=== PATIENT | female | born 1990 | race Caucasian/White ===

== ENCOUNTER 2018-09-03 06:02 | Emergency (ER) | payer OTHER ==
[2018-09-03 06:45] VITALS: BP 114/68; PULSE 73; TEMP 98.6; BMI 36.6
[2018-09-03 07:14] LABS: BASO % 0.5 % (0-2.0); EOS % 1.3 % (0-4.5); HEMATOCRIT 32.8 % (32.4-45.2); HEMOGLOBIN 10.3 GM/dL (10.7-15.3); MCH 23.7 pg (25.7-33.7); MCHC 31.6 g/dl (32.0-36.0); MEAN PLT VOLUME 8.5 fl (7.5-11.1); MONO % 8.2 % (3.8-10.2); PLATELET COUNT 221 K/MM3 (134-434); RBC 4.37 M/mm3 (3.60-5.2); RDW 16.2 % (11.6-15.6); WHITE BLOOD COUNT 5.9 K/mm3 (4.0-10.0)
--- NOTE | 2018-09-03 07:28 | PDOC ---
Attending Attestation - Resident Resident Name: Lynn Murrell - ED Attending Attestation I have performed the following: I have examined & evaluated the patient, The case was reviewed & discussed with the resident, I agree w/resident's findings & plan, Exceptions are as noted - HPI HPI: 09/03/18 07:40 27y F 9 weeks woke up this morning to urinate and noticed some spotting when cleaning herself. Pt endorsed a brief moment of pain yuesterday but has since resolved. pt denies any fever/chills, frequency, foul smelling urine, diarrhea, bpr, new back pain, cp, sob, cough. pt has pending OB apt on at [facility] [place]. exam: general: well appearing, NAD abd: soft nontender, no cva tenderness pelvic: per resident ap: preg vag spotting will ck labs, type, US to eval status - Medical Decision Making 09/03/18 10:07 The patient's lab work was reviewed Patient's vaginal ultrasound reveals an IUP with appropriate heart rate We'll discharge patient to follow up with [employer] Precautions were discussed
--- NOTE | 2018-09-03 07:45 | PDOC ---
History of Present Illness - General Chief Complaint: Pain, Acute Stated Complaint: ABD PAIN 9 WEEKS Time Seen by Provider: 09/03/18 07:10 - History of Present Illness Initial Comments: Mary Payton is an otherwise healthy woman, at 8w2d by LMP, who presents with a small amount of vaginal bleeding today. She reports that she has not had any issues thus far in her . Yesterday , she felt that her abdomen became hard and hurt, but the sensation lasted a short time and self-resolved. The abdominal hardness and pain did not recur. She woke up overnight to use the bathroom, and she noticed some blood on the toilet paper. There was not enough blood to stain her underwear, but her first was complicated by placental detachment and she was concerned that something similar was happening now. Ms Payton reports that she was told during her first that the placental detachment was due to not producing enough progesterone, and she received progesterone supplements (IM and PO) and was on strict bedrest for the remainder of her . She delivered at 34 weeks. She denies any other abdominal p ain, bleeding episodes, fevers/chills, or dysuria. Past History - Past Medical History Allergies/Adverse Reactions: Allergies Allergy/AdvReac Type Severity Reaction Status Date / Time No Known Allergies Allergy Verified 09/03/18 06:43 Home Medications: Ambulatory Orders NK [No Known Home Medication] 09/03/18 COPD: No - Reproductive History Is Patient Now?: Yes - Immunization History Immunization Up to Date: No - Suicide/Smoking/Psychosocial Hx Smoking History: Never smoked Have you smoked in the past 12 months: No Information on smoking cessation initiated: No Hx Alcohol Use: No Drug/Substance Use Hx: No Review of Systems - Review of Systems Comments:: General: No fevers, no chills, no weight or appetite changes, no malaise HEENT: No changes in vision, no changes in hearing, no congestion, no sore throat CV: No chest pain, no palpitations, no LE edema Pulm: No SOB, no cough, no wheezing GI: No nausea or vomiting, no change in bowel habits, no melena : No frequency, no urgency, no dysuria Musc: +Mild back pain, no joint swelling, no recent injury Skin: No rash, no lesions, no erythema Endo: No excessive thirst, no heat/cold intolerance Heme: No unusual bruising or bleeding, no swollen glands Neuro: No syncope, no numbness/tingling, no focal weakness Vasc: No claudication Psych: No recent change in mood, no SI or HI *Physical Exam - Vital Signs Last Vital Signs Temp Pulse Resp BP Pulse Ox 98.6 F 73 20 114/68 100 09/03/18 06:05 09/03/18 06:05 09/03/18 06:05 09/03/18 06:05 09/03/18 06:05 - Physical Exam Comments: General: Comfortable, no acute distress HEENT: PERRL, EOMI, MMM, voice normal, normal neck ROM Cards: RRR, no murmur appreciated Pulm: Comfortable on room air Abd: Soft, nontender, nondistended. Not visibly gravid : Normal external genitalia, no blood or lesions. No blood in vaginal canal. No lesions or abrasions. Os closed. Ext: Atraumatic. No LE edema. ROM intact. Strength 5/5 and equal bilaterally Vasc: WWP Skin: Normal color, no rashes or lesions Neuro: A&Ox3, CN grossly intact, normal speech, motor/sensory grossly intact and symmetric Psych: Mood appropriate to situation ED Treatment Course - LABORATORY CBC & Chemistry Diagram: 09/03/18 06:53 09/03/18 06:53 Medical Decision Making - Medical Decision Making 09/03/18 07:37 Mary Payton is an otherwise healthy woman, 9wks , who presents with vaginal bleeding that started this morning as well as an episode of abdominal cramping yesterday. - Ms Payton reports that her previous was complicated by placental detachment; need to rule out similar episode - Ddx includes normal or threatened/inevitable . Low suspicion for completed spontaneous as Ms Payton. As no bleeding or opening of the cervical os was noted on exam, more reassuring for normal - CBC, CMP, bHCG, UA, UCx previously ordered. Will add type and screen. - Transvaginal ultrasound ordered to confirm intrauterine 09/03/18 09:58 - CBC and chemistry unremarkable - bHCG [id number], c/w reported gestational age - UA with small number of RBC and WBCs. Ms Payton states that she did not use a wipe to clean herself prior to collecting the sample. Will not treat for now, should repeat her UA at her OB follow up - Ultrasound returned - shows an intrauterine at 8w0d, HR 140. - Discussed results with Ms Payton. US and labs show likely healthy but could also represent a threatened . She has an OB appointment on but should try to reschedule for early next week. Ms Payton states agreement with this plan. Discussed return precautions, and she also states understanding. Seen and discussed with Dr Sanchez. Lynn Murrell PGY1 *DC/Admit/Observation/Transfer Diagnosis at time of Disposition: Vaginal bleeding in patient at less than 20 weeks gestation - Discharge Dispostion Disposition: HOME Condition at time of disposition: Stable Decision to Admit order: No - Referrals Referrals: Alma Fung MD [Staff Physician] - - Patient Instructions Printed Discharge Instructions: Vaginal Bleeding During Additional Instructions: Discharge Instructions: - You were seen in the ED for vaginal bleeding during your - Tests showed that you are about 8 weeks . The baby is located properly and has a heart rate of 140 beats/minute. There was no sign of any problem with your - You should follow up with your hand coremaker early next week - If you need to establish care with an hand coremaker, you have been referred to Dr Fung - Seek medical care if you have severe or persistent vaginal bleeding, severe or abrupt onset of abdominal pain, feel lightheaded along with bleeding, or experience abdominal/back cramping similar to contractions. Print Language: HUNGARIAN - Post Discharge Activity
[2018-09-03 07:52] LABS: URINE APPEARANCE CLEAR; URINE BILIRUBIN NEGATIVE (<2.0 mg/dL); URINE COLOR YELLOW; URINE GLUCOSE (UA) NEGATIVE (NEGATIVE); URINE KETONE NEGATIVE (NEGATIVE); URINE LEUK ESTERASE TRACE (NEGATIVE); URINE NITRITE NEGATIVE (NEGATIVE); URINE PROTEIN NEGATIVE (NEGATIVE); URINE UROBILINOGEN NEGATIVE mg/dL (0.2-1.0)
[2018-09-03 08:18] LABS: EPI CELLS RARE /HPF (FEW); URINE MUCUS RARE
[2018-09-03 08:43] LABS: ALBUMIN 3.4 g/dl (3.4-5.0); ALK PHOS 66 U/L (45-117); ANION GAP 7 MMOL/L (8-16); BILIRUBIN,TOTAL 0.4 mg/dL (0.2-1); BLOOD UREA NITROGEN 12 mg/dL (7-18); CALCIUM 8.7 mg/dL (8.5-10.1); CHLORIDE 103 mmol/L (98-107); CO2 27 mmol/L (21-32); CREATININE 0.5 mg/dL (0.55-1.3); GLUCOSE,RANDOM 91 mg/dL (74-106); POTASSIUM 3.7 mmol/L (3.5-5.1); SGOT/AST 12 U/L (15-37); SGPT/ALT 14 U/L (13-61); SODIUM 137 mmol/L (136-145); TOT PROT 6.4 g/dl (6.4-8.2)
== END 2018-09-03 10:30 | disposition home or self-care (01) ==
LOC: JER 06:02
DX: O26.891 Other specified pregnancy related conditions, first trimester (principal); N93.9 Abnormal uterine and vaginal bleeding, unspecified
CPT/HCPCS: 36415; 76830-TC; 80053; 81003; 81015; 84702; 85025; 87086; 99282-25

== ENCOUNTER 2018-10-28 10:27 | Emergency (ER) | payer OTHER ==
[2018-10-28 11:04] VITALS: BP 144/62; PULSE 89; TEMP 98.4; BMI 83.4
--- NOTE | 2018-10-28 12:07 | PDOC ---
History of Present Illness - General Chief Complaint: Vaginal Bleeding Stated Complaint: VAGINAL BLEEDING (17 WKS ) Time Seen by Provider: 10/28/18 11:29 History Source: Patient Exam Limitations: No Limitations - History of Present Illness Initial Comments: 10/28/18 12:07 CHIEF COMPLAINT: Vaginal bleeding HISTORY OF PRESENT ILLNESS: This is an otherwise healthy , 17 weeks and receiving care at [address] [place] [address], who presents for evaluation of vaginal bleeding with clots and back pain today. She denies trauma, nausea/ vomiting, dysuria, or any other symptoms. Vital signs on arrival are unremarkable. REVIEW OF SYSTEMS: GENERAL/CONSTITUTIONAL: No fever or chills. No weakness. No weight change. HEAD, EYES, EARS, NOSE AND THROAT: No change in vision. No ear pain or discharge. No sore throat. CARDIOVASCULAR: No chest pain or palpitations. RESPIRATORY: No cough, wheezing, or shortness of breath. GASTROINTESTINAL: No nausea, vomiting, diarrhea or constipation. GENITOURINARY: See HPI. MUSCULOSKELETAL: No joint or muscle swelling or pain. No neck or back pain. SKIN: No rash or easy bruising. NEUROLOGIC: No headache, vertigo, loss of consciousness, or loss of sensation. PSYCHIATRIC: No depression or anxiety. ENDOCRINE: No increased thirst. No abnormal weight change. HEMATOLOGIC/LYMPHATIC: No anemia, easy bleeding, or history of blood clots. ALLERGIC/IMMUNOLOGIC: No hives or skin allergy. No latex allergy. PHYSICAL EXAM: GENERAL: The patient is awake, alert, and fully oriented, in no acute distress. HEAD: Normal with no signs of trauma. ENT: Pupils equal, round and reactive to light, extraocular movements intact, sclera anicteric, conjunctiva clear. Neck supple. LUNGS: Clear to auscultation bilaterally. Normal excursion. No respiratory distress or use of accessory muscles. CV: RRR, S1/S2, no MRG. Cap refill < 2 sec. ABDOMEN: Soft, non-tender. Gravid uterus palpable above umbilicus. No CVA tenderness. EXTREMITIES: Normal range of motion, no edema. NEUROLOGICAL: Normal speech, normal gait. CN II-XII grossly intact. PSYCH: Normal mood, normal affect. SKIN: Warm, dry, normal turgor, no rashes or lesions noted. 10/28/18 14:50 Past History - Past Medical History Allergies/Adverse Reactions: Allergies Allergy/AdvReac Type Severity Reaction Status Date / Time No Known Allergies Allergy Verified 10/28/18 10:59 Home Medications: Ambulatory Orders No122/Iron/Folic Acid [ Multi Tablet] 1 each PO DAILY 10/28/18 COPD: No - Reproductive History (#): 2 Para: 1 Spontaneous : 0 - Immunization History Immunization Up to Date: Yes - Suicide/Smoking/Psychosocial Hx Smoking History: Never smoked Have you smoked in the past 12 months: No Information on smoking cessation initiated: No Hx Alcohol Use: No Drug/Substance Use Hx: No *Physical Exam - Vital Signs Last Vital Signs Temp Pulse Resp BP Pulse Ox 98.4 F 89 18 144/62 99 10/28/18 11:01 10/28/18 11:01 10/28/18 11:01 10/28/18 11:01 10/28/18 11:01 Moderate Sedation - Procedure Monitoring Vital Signs: Procedure Monitoring Vital Signs Temperature 98.4 F 10/28/18 11:01 Pulse Rate 89 10/28/18 11:01 Respiratory Rate 18 10/28/18 11:01 Blood Pressure 144/62 10/28/18 11:01 O2 Sat by Pulse Oximetry (%) 99 10/28/18 11:01 ED Treatment Course - LABORATORY CBC & Chemistry Diagram: 10/28/18 12:45 10/28/18 12:45 - RADIOLOGY Radiology Studies Ordered: Category Date Time Status LIMITED US [US] Stat Ultrasound 10/28/18 12:04 Ordered Medical Decision Making - Medical Decision Making 10/28/18 14:52 A/P: 28-year-old female in second trimester with vaginal bleeding and back pain. 1. Etc. ultrasound 2. Labs including CBC, type and screen 3. Patient declines analgesia Patient is Rh+. H/H within normal limits. Ultrasound reviewed: Single, live IUP 16 weeks 1 day with normal FH R and cervical length. Placenta is in posterior and fundal position. *DC/Admit/Observation/Transfer Diagnosis at time of Disposition: Threatened , Vaginal bleeding in patient at less than 20 weeks gestation - Discharge Dispostion Disposition: HOME Condition at time of disposition: Stable Decision to Admit order: No - Referrals - Patient Instructions Printed Discharge Instructions: DI for Threatened Additional Instructions: -Pelvic rest (no baths, no sexual activity) -Take Tylenol if needed for pain -Follow up with your emergency department clinician early next week -Return for worsening pain, bleeding or any other concerning symptoms Print Language: GABONESE - Post Discharge Activity
[2018-10-28 12:55] LABS: BASO % 0.2 % (0-2.0); HEMATOCRIT 34.3 % (32.4-45.2); HEMOGLOBIN 11.9 GM/dL (10.7-15.3); LYMPH % 29.5 % (8-40); MCH 26.1 pg (25.7-33.7); MCHC 34.6 g/dl (32.0-36.0); MEAN CELL VOLUME 75.5 fl (80-96); MEAN PLT VOLUME 9.2 fl (7.5-11.1); MONO % 7.4 % (3.8-10.2); NEUT % 60.9 % (42.8-82.8); PLATELET COUNT 212 K/MM3 (134-434); RBC 4.54 M/mm3 (3.60-5.2); RDW 16.2 % (11.6-15.6)
[2018-10-28 13:19] LABS: ANION GAP 8 MMOL/L (8-16); BLOOD UREA NITROGEN 8 mg/dL (7-18); CALCIUM 8.6 mg/dL (8.5-10.1); CHLORIDE 106 mmol/L (98-107); CO2 24 mmol/L (21-32); CREATININE 0.4 mg/dL (0.55-1.3); GLUCOSE,RANDOM 81 mg/dL (74-106); POTASSIUM 4.1 mmol/L (3.5-5.1); SODIUM 137 mmol/L (136-145)
== END 2018-10-28 15:11 | disposition home or self-care (01) ==
LOC: JER 10:27
DX: O26.892 Other specified pregnancy related conditions, second trimester (principal); O20.0 Threatened abortion; Z3A.17 17 weeks gestation of pregnancy
CPT/HCPCS: 36415; 76815-TC; 80048; 85025; 86850; 86900; 86901; 99282-25

== ENCOUNTER 2019-04-04 08:45 | Inpatient (IN) | payer OTHER ==
[2019-04-04] MEDS ORDERED: CITRIC ACID/SODIUM CITRATE 30 ML UNIT-DOSE CUP PO ONE (09:25)
[2019-04-04] MEDS ORDERED: ELECTROLYTE-148 SOLN 1,000 ML IV SCH ×2 (09:30)
--- NOTE | 2019-04-04 09:30 | HP ---
Past Medical History - Admission Chief Complaint: SROM History of Present Illness: 28yo @ 38+wks here with SROM of clear fluid at 5AM, contractions. No VB/ LOF. 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: Alzheimer's, CVA, Dementia, Migraine, Multiple Sclerosis, Peripheral Neuropathy, Parkinson's, Seizure, Syncope, TIA, Vertigo, Other Cardiovascular: No: AFIB, Aneurysm, Aortic Insufficiency, Aortic Stenosis, CAD, CHF, Deep Vein Thrombosis, HTN, Hyperlipdemia, [place], Mitral Insufficiency, Mitral Stenosis, Murmur, Pulmonary Hypertension, Other Pulmonary: No: Asthma, Bronchitis, Cancer, COPD, O2 Dependent, Pneumonia, Previously Intubated, Pulmonary Embolus, Pulmonary Fibrosis, Sleep Apnea, Other Gastrointestinal: No: Ascites, Cancer, Constipation, Crohn's Disease, Diverticulitis, Diverticulosis, Esophageal Varices, Gastritis, GERD, GI Bleed, Hemorrhoids, Hiatal Hernia, Inflamatory Bowel Disease, Irritable Bowel Disease, Pancreatitis, Peptic Ulcer Disease, Ulcerative Colitis, Other Reproductive: Yes: Polycystic Ovary Syndrome Heme/Onc: Yes: Anemia Infectious Disease: No: AIDS, C-Diff, Herpes Zoster, HIV, MRSA, STD's, Tuberculosis, VREF, Other Psych: No: Addictions, Anxiety, Bipolar, Depression, Panic, Psychosis, Schizophrenia, Other Musculoskeletal: No: Bursitis, Chronic low back pain, Hemiparesis, Hemiplegia, Osteoarthritis, Paraplegia, Other Endocrine: No: Alton's Disease, Ayah's Disease, Diabetes Insipidus, Diabetes Mellitus, Hyperparathyroidism, Hyperthyroidism, Hypothyroidism, Osteopenia, SIADH, Other Dermatology: No: Basal Cell, Cellulitis, Eczema, Melanoma, Psoriasis, Squamous Cell, Other - Past Surgical History Past Surgical History: Yes: Appendectomy, Hx Myomectomy: No Hx Transabdominal Cerclage: No Additional Surgical History: Ovarian cystectomy - Smoking History Smoking history: Never smoked Have you smoked in the past 12 months: No - Alcohol/Substance Use Hx Alcohol Use: No History of Substance Use: reports: None - Social History Usual Living Arrangement: Yes: Alone ADL: Independent History of Recent Travel: No Home Medications - Allergies Allergies/Adverse Reactions: Allergies Allergy/AdvReac Type Severity Reaction Status Date / Time No Known Allergies Allergy Verified 10/28/18 10:59 - Home Medications Home Medications: Ambulatory Orders No122/Iron/Folic Acid [ Multi Tablet] 1 each PO DAILY 10/28/18 Review of Systems - Review of Systems Constitutional: denies: No Symptoms, Chills, Diaphoresis, Fever, Lethargy, Loss of Appetite, Malaise, Night Sweats, Unintentional Wgt. Loss, Weakness, Other Cardiovascular: denies: No Symptoms, Chest Pain, Edema, Palpitations, Shortness of Breath, Other Respiratory: denies: No Symptoms, Cough, Exercise Intolerance, Hemoptysis, Orthopnea, PND, Snoring, SOB, SOB on Exertion, Wheezing, Other Gastrointestinal: denies: No Symptoms, Abdominal Pain, Bloating, Constipation, Diarrhea, Dysphagia, Indigestion, Melena, Nausea, Rectal Bleeding, Vomiting, Vomiting Blood, Other Physical Exam - Maternity Constitutional: Yes: Well Nourished, No Distress, Calm - Abdominal Exam/OB Number of Fetuses: Single Presentation: Vertex Contractions: Yes Regularity: Irregular Intensity: Mod/Strong Heart Rate Location: LUQ Category: I Accelerations: Non-Uniform Decelerations: None - Vaginal Exam/OB Vaginal Bleediing: No Speculum Exam: No (grossly ruptured) Dilatation (cm): 1 Effacement (%): 100 Amniotic Membrane Status: Ruptured Nitrazine Test: Positive Amniotic Fluid: Yes: Clear Presentation: Vertex/Position Station: -3 - Physical Exam Edema: No Assessment/Plan 28yo @ 38+wks here with SROM, prior C/S Admit to L&D NPO, IVFs Ancef SCDs Declines TOLAC, opts for ERCS. Risk of procedure reviewed including bleeding/ infection/injury to bladder/bowel/vessels/ovaries/fallopian tubes
[2019-04-04 09:51] VITALS: BMI 40.6
[2019-04-04 10:35] LABS: BASO % 0.2 % (0-2.0); EOS % 0.3 % (0-4.5); HEMATOCRIT 34.1 % (32.4-45.2); MCH 25.3 pg (25.7-33.7); MCHC 32.1 g/dl (32.0-36.0); MEAN CELL VOLUME 78.8 fl (80-96); MEAN PLT VOLUME 8.2 fl (7.5-11.1); MONO % 6.8 % (3.8-10.2); NEUT % 72.7 % (42.8-82.8); PLATELET COUNT 198 K/MM3 (134-434); RBC 4.33 M/mm3 (3.60-5.2); WHITE BLOOD COUNT 7.9 K/mm3 (4.0-10.0)
[2019-04-04 10:46] LABS: INR 1.02 (0.83-1.09)
[2019-04-04 10:49] LABS: ACTIVATED PTT 30.2 SECONDS (25.2-36.5)
[2019-04-04 10:58] LABS: CALCIUM 8.1 mg/dL (8.5-10.1); CREATININE 0.6 mg/dL (0.55-1.3); POTASSIUM 3.7 mmol/L (3.5-5.1)
[2019-04-04] MEDS ORDERED: morphine SULFATE/Preservative Free 0.5 MG/ML (1cc Syringe) ONE (11:25)
[2019-04-04] MEDS ORDERED: DEXAMETHASONE SOD PHOSPHATE 4 MG/1 ML VIAL ONE ×2 (11:25→12:00)
[2019-04-04] MEDS ORDERED: ceFAZolin SODIUM 1 GM VIAL ONE (11:25)
[2019-04-04] MEDS ORDERED: ePHEDrine SULFATE 50 MG/1 ML AMPULE ONE (11:28)
[2019-04-04] MEDS ORDERED: OXYTOCIN 10 UNITS/ML VIAL ONE (11:54)
[2019-04-04] MEDS ORDERED: OXYTOCIN 20 UNITS in 0.9% NS 20 UNIT/1,000 ML INFUS.BAG IV ONE (11:56)
[2019-04-04] MEDS ORDERED: MIDAZOLAM HCL 2 MG/2 ML SINGLE DOSE VIAL ONE (12:07)
[2019-04-04] MEDS ORDERED: KETOROLAC TROMETHAMINE 30 MG/1 ML VIAL ONE (12:10)
--- NOTE | 2019-04-04 12:38 | OP ---
Operative Note - Note: Operative Date: 04/04/19 Pre-Operative Diagnosis: Prior , SROM, Desires elective RLTCS Operation: Repaet Low Transverse Findings: VFI, MELECIO position. No nucha, no meconiu. Apgars 9/9. Weight pending. Normal right tube and ovary. Normal left tube, no left ovary seen or palpated. Surgeon: Alma Fung Chemical Laboratory Scientist: Bossman Schmitt Anesthesia: Spinal Estimated Blood Loss (mls): 600 Drains, Volume Out (mls): 400 (clear urine) Operative Report Dictated: Yes
[2019-04-04] MEDS ORDERED: ONDANSETRON 4 MG/2 ML VIAL IVPUSH PRN (12:49)
--- NOTE | 2019-04-04 12:49 | SURG ---
Surgery Panel Wirer Note Panel Wirer: Bossman Schmitt PA-C Date of Service: 04/04/19 Diagnosis: Prior , SROM Procedure: Repaet Low Transverse I was present for the entirety of the operative procedure. For further detail, please refer to operative report. Visit type - Case Type Case Type: Scheduled - Emergency Emergency Visit: No - New patient This patient is new to me today: Yes Date on this admission: 04/04/19 - Critical Care Critical Care patient: No
[2019-04-04] MEDS ORDERED: ACETAMINOPHEN 1000 MG/100 ML VIAL (NON FORMULARY) IVPB PRN (12:50)
[2019-04-04] MEDS ORDERED: WITCH HAZEL 50% (TUCKS) 40 PAD/JAR PAD TP PRN (13:32)
[2019-04-04] MEDS ORDERED: IBUPROFEN 800 MG/8 ML IJ IVPB PRN (13:32)
[2019-04-04] MEDS ORDERED: BENZOCAINE 28 GM HEMORRHOIDAL OINTMENT TP PRN (13:32)
[2019-04-04] MEDS ORDERED: oxyCODONE HCL 5 MG TABLET PO PRN (13:32)
[2019-04-04] MEDS ORDERED: BENZOCAINE 20% 57 GM BOTTLE TP PRN (13:32)
[2019-04-04] MEDS ORDERED: METHYLERGONOVINE MALEATE 0.2 MG/1 ML AMP IM PRN (13:32)
[2019-04-04] MEDS ORDERED: OXYTOCIN 20 UNITS in 0.9% NS 20 UNIT/1,000 ML INFUS.BAG IV SCH (13:45)
[2019-04-05] MEDS: FERROUS SO4 325 MG TABLET (FP) PO SCH ×3 (03:07→21:09)
--- NOTE | 2019-04-05 07:34 | PN ---
HC Provider Note Provider Note: Anesthesia Post - op Pt seen s/p spinal for c/section Pt awake alert denies h/a, n/v, SOB fuentes in situ reports normal sensory and strength b/l lower ext VSS no apparent anesthesia complications Unruly Dong.
[2019-04-05 07:53] LABS: BASO % 0.1 % (0-2.0); EOS % 0.1 % (0-4.5); HEMATOCRIT 27.3 % (32.4-45.2); LYMPH % 21.9 % (8-40); MCH 25.7 pg (25.7-33.7); MEAN CELL VOLUME 78.1 fl (80-96); MEAN PLT VOLUME 8.5 fl (7.5-11.1); MONO % 6.7 % (3.8-10.2); NEUT % 71.2 % (42.8-82.8); PLATELET COUNT 183 K/MM3 (134-434); RBC 3.49 M/mm3 (3.60-5.2); RDW 15.1 % (11.6-15.6); WHITE BLOOD COUNT 9.3 K/mm3 (4.0-10.0)
[2019-04-05] MEDS: IBUPROFEN 600 MG TABLET (FP) PO PRN ×2 (09:45→23:23)
[2019-04-05] MEDS: SIMETHICONE 80 MG TAB.CHEW (FP) PO PRN ×2 (09:45→19:57)
[2019-04-05] MEDS: ACETAMINOPHEN 325 MG TABLET (FP) PO PRN ×3 (09:46→23:24)
[2019-04-05] MEDS: PRENATAL VITAMINS W/ FOLIC ACID TABLET (FP) PO SCH (10:06)
--- NOTE | 2019-04-05 11:26 | PN ---
Post Progress Note - Subjective Subjective: 28 yo Para 2 , status post repeat , seen and evaluated. Doing well. Post Day: 1 Type of Delivery: Repeat C/S Vital Signs: Vital Signs Temperature 98.3 F 04/05/19 08:46 Pulse Rate 69 04/05/19 08:46 Respiratory Rate 18 04/05/19 10:00 Blood Pressure 108/60 04/05/19 08:46 O2 Sat by Pulse Oximetry (%) 100 04/04/19 13:30 Breast Exam: Yes: Soft Uterus: Yes: Fundus @ umbilicus Incision: Yes: Dressing dry and intact Abdomen/GI: Yes: Abdomen soft, Tolerating PO Lochia: Yes: Rubra Lochia, amount: Small Extremities: Yes: Calves non-tender Activity: Ambulating - Labs Labs: CBC WBC 9.3 K/mm3 (4.0-10.0) 04/05/19 05:36 RBC 3.49 M/mm3 (3.60-5.2) L 04/05/19 05:36 Hgb 9.0 GM/dL (10.7-15.3) L 04/05/19 05:36 Hct 27.3 % (32.4-45.2) L D 04/05/19 05:36 MCV 78.1 fl (80-96) L 04/05/19 05:36 MCH 25.7 pg (25.7-33.7) 04/05/19 05:36 MCHC 33.0 g/dl (32.0-36.0) 04/05/19 05:36 RDW 15.1 % (11.6-15.6) 04/05/19 05:36 Plt Count 183 K/MM3 (134-434) 04/05/19 05:36 MPV 8.5 fl (7.5-11.1) 04/05/19 05:36 Absolute Neuts (auto) 6.7 K/mm3 (1.5-8.0) 04/05/19 05:36 Neutrophils % 71.2 % (42.8-82.8) 04/05/19 05:36 Lymphocytes % 21.9 % (8-40) 04/05/19 05:36 Monocytes % 6.7 % (3.8-10.2) 04/05/19 05:36 Eosinophils % 0.1 % (0-4.5) 04/05/19 05:36 Basophils % 0.1 % (0-2.0) 04/05/19 05:36 Nucleated RBC % 0 % (0-0) 04/05/19 05:36 Problem List - Problems (1) Status post repeat low transverse section Code(s): Z98.891 - HISTORY OF UTERINE SCAR FROM PREVIOUS SURGERY Assessment/Plan Status post repeat Ambulation Analgesia as needed Continue post op care
[2019-04-05] MEDS ORDERED: BISACODYL 10 MG SUPP.RECT RC PRN (13:32)
--- NOTE | 2019-04-05 16:18 | OP ---
DATE OF OPERATION: 04/04/2019 PREOPERATIVE DIAGNOSIS: Prior sections, spontaneous rupture of membranes, desires elective repeat, term . POSTOPERATIVE DIAGNOSIS: Prior sections, spontaneous rupture of membranes, desires elective repeat, term . PROCEDURE: Repeat low transverse section. ANESTHESIA: Spinal. SURGEON: Alma Fung M.D. SHIP'S SURVEYOR: Kina Guzmán INTRAVENOUS FLUIDS: Per anesthesia record ESTIMATED BLOOD LOSS: 600 URINE OUTPUT: 400 mL of clear urine at the end of the procedure FINDINGS: Viable female , MELECIO presentation, no nuchal, no meconium, weight pending, Apgars 9 and 9, normal right fallopian tube and ovary. Normal left fallopian tube. No left ovary seen or palpated. COMPLICATIONS: None. CONDITION: Stable to recovery room. DESCRIPTION OF PROCEDURE: After appropriate consents were signed, patient was taken to the operating room. Spinal anesthesia was administered after prepped and draped in normal sterile fashion. Ramirez catheter had been inserted prior to entry into the operating room. Anesthesia was confirmed. Timeout was performed confirming correct patient and procedure. A Pfannenstiel skin incision was made and carried through to the underlying layers until the fascia was nicked in the midline. Fascia was then extended laterally with the Ewing scissors. The inferior aspect of the fascia was grasped with the Michelle clamp, tented upwards, and the rectus muscles dissected off with Ewing scissors and bluntly. Attention was then paid to the superior aspect which was taken down in a similar fashion. The rectus muscles were grasped in the midline, tented upwards, and in the midline with the scalpel. The peritoneum was entered after it was grasped with 2 hemostats, tented upwards, transilluminated with the Metzenbaum, and then nicked. Peritoneum was extended bluntly. Bladder blade was then inserted. Bladder flap was then created with the Metzenbaum and extended digitally. The bladder blade was reinserted. The uterus was incised in a low transverse fashion. Clear amniotic fluid was noted. The infant's head was delivered without difficulty as were the remaining shoulders and body. The cord was clamped and cut, the was handed off to the waiting pediatric staff. The placenta was then removed manually. The uterus was cleared of all clot and debris. The hysterotomy was closed in a single layer with a 1-0 Vicryl. Central portion of the hysterotomy had to be reinforced for hemostasis with a 1-0 Vicryl. Attention was then paid to the adnexa, which were inspected. Normal right fallopian tube and ovary. Left fallopian tube was noted to be normal. No left ovary was seen or palpated. Hysterotomy was reinspected. There was an area inferior to the hysterotomy that was bleeding despite cautery. No hemostasis was achieved, and a 0 Vicryl figure-of- eight was used to achieve hemostasis. The gutters were then cleared of all clot and debris. The hysterotomy and 2nd area that had previously been bleeding were reinspected and noted to be hemostatic. The muscle was then closed with 2-0 chromic. The fascia was closed with 0 Vicryl. Subcutaneous fat was closed with a 3-0 plain. Skin was closed with 3-0 Vicryl. All sponge, lap, needle count was correct x3. Patient did receive 2 g of Ancef at the start of the procedure. She was taken from the operating room to the recovery area in stable condition. MD JAEL DALTON/[id number] MTDD
--- NOTE | 2019-04-06 06:38 | PN ---
Post Progress Note Post Day: 2 Type of Delivery: Repeat C/S Vital Signs: Vital Signs Temperature 98.6 F 04/05/19 20:32 Pulse Rate 84 04/05/19 20:32 Respiratory Rate 20 04/05/19 20:32 Blood Pressure 101/63 04/05/19 20:32 O2 Sat by Pulse Oximetry (%) 100 04/04/19 13:30 Uterus: Yes: Fundus Firm Incision: Yes: Dressing dry and intact Abdomen/GI: Yes: Abdomen soft Lochia: Yes: Rubra Lochia, amount: Small Extremities: Yes: Calves non-tender Perineum: Yes: Intact Activity: Ambulating - Labs Labs: CBC WBC 9.3 K/mm3 (4.0-10.0) 04/05/19 05:36 RBC 3.49 M/mm3 (3.60-5.2) L 04/05/19 05:36 Hgb 9.0 GM/dL (10.7-15.3) L 04/05/19 05:36 Hct 27.3 % (32.4-45.2) L D 04/05/19 05:36 MCV 78.1 fl (80-96) L 04/05/19 05:36 MCH 25.7 pg (25.7-33.7) 04/05/19 05:36 MCHC 33.0 g/dl (32.0-36.0) 04/05/19 05:36 RDW 15.1 % (11.6-15.6) 04/05/19 05:36 Plt Count 183 K/MM3 (134-434) 04/05/19 05:36 MPV 8.5 fl (7.5-11.1) 04/05/19 05:36 Absolute Neuts (auto) 6.7 K/mm3 (1.5-8.0) 04/05/19 05:36 Neutrophils % 71.2 % (42.8-82.8) 04/05/19 05:36 Lymphocytes % 21.9 % (8-40) 04/05/19 05:36 Monocytes % 6.7 % (3.8-10.2) 04/05/19 05:36 Eosinophils % 0.1 % (0-4.5) 04/05/19 05:36 Basophils % 0.1 % (0-2.0) 04/05/19 05:36 Nucleated RBC % 0 % (0-0) 04/05/19 05:36 Assessment/Plan pod 2 dressing removed oob reg diet pain control
[2019-04-06] MEDS: FERROUS SO4 325 MG TABLET (FP) PO SCH ×2 (09:31→23:02)
[2019-04-06] MEDS: IBUPROFEN 600 MG TABLET (FP) PO PRN ×3 (09:31→23:02)
[2019-04-06] MEDS: SIMETHICONE 80 MG TAB.CHEW (FP) PO PRN ×2 (09:31→23:02)
[2019-04-06] MEDS: ACETAMINOPHEN 325 MG TABLET (FP) PO PRN ×3 (09:31→23:01)
[2019-04-06] MEDS: PRENATAL VITAMINS W/ FOLIC ACID TABLET (FP) PO SCH (09:31)
--- NOTE | 2019-04-07 07:42 | PN ---
Post Progress Note Post Day: 3 Type of Delivery: Repeat C/S Vital Signs: Vital Signs Temperature 97.2 F L 04/06/19 21:07 Pulse Rate 82 04/06/19 21:07 Respiratory Rate 20 04/06/19 21:07 Blood Pressure 133/79 04/06/19 21:07 O2 Sat by Pulse Oximetry (%) 100 04/04/19 13:30 Uterus: Yes: Fundus below umbilicus Incision: Yes: Dressing dry and intact Abdomen/GI: Yes: Abdomen soft, Tolerating PO Lochia: Yes: Rubra Lochia, amount: Small Extremities: Yes: Calves non-tender Perineum: Yes: Intact Activity: Ambulating (No fevers/chills. Po pain control) - Labs Labs: CBC WBC 9.3 K/mm3 (4.0-10.0) 04/05/19 05:36 RBC 3.49 M/mm3 (3.60-5.2) L 04/05/19 05:36 Hgb 9.0 GM/dL (10.7-15.3) L 04/05/19 05:36 Hct 27.3 % (32.4-45.2) L D 04/05/19 05:36 MCV 78.1 fl (80-96) L 04/05/19 05:36 MCH 25.7 pg (25.7-33.7) 04/05/19 05:36 MCHC 33.0 g/dl (32.0-36.0) 04/05/19 05:36 RDW 15.1 % (11.6-15.6) 04/05/19 05:36 Plt Count 183 K/MM3 (134-434) 04/05/19 05:36 MPV 8.5 fl (7.5-11.1) 04/05/19 05:36 Absolute Neuts (auto) 6.7 K/mm3 (1.5-8.0) 04/05/19 05:36 Neutrophils % 71.2 % (42.8-82.8) 04/05/19 05:36 Lymphocytes % 21.9 % (8-40) 04/05/19 05:36 Monocytes % 6.7 % (3.8-10.2) 04/05/19 05:36 Eosinophils % 0.1 % (0-4.5) 04/05/19 05:36 Basophils % 0.1 % (0-2.0) 04/05/19 05:36 Nucleated RBC % 0 % (0-0) 04/05/19 05:36 Assessment/Plan 28yo s/p RLTCS, POD#3 Routine PP care OOB, Ambulate Labs reviewed Anticipate d/c to home today Miguelangel Fung MD
[2019-04-07 08:16] VITALS: BP 131/78; PULSE 84; TEMP 98.5
[2019-04-07 08:25] LABS: BASO % 0.4 % (0-2.0); EOS % 1.7 % (0-4.5); HEMATOCRIT 30.1 % (32.4-45.2); HEMOGLOBIN 9.8 GM/dL (10.7-15.3); LYMPH % 40.2 % (8-40); MCH 25.5 pg (25.7-33.7); MCHC 32.7 g/dl (32.0-36.0); MEAN PLT VOLUME 8.5 fl (7.5-11.1); NEUT % 50.7 % (42.8-82.8); PLATELET COUNT 219 K/MM3 (134-434); RBC 3.86 M/mm3 (3.60-5.2); RDW 15.4 % (11.6-15.6); WHITE BLOOD COUNT 6.5 K/mm3 (4.0-10.0)
[2019-04-07] MEDS: FERROUS SO4 325 MG TABLET (FP) PO SCH (09:05)
[2019-04-07] MEDS: PRENATAL VITAMINS W/ FOLIC ACID TABLET (FP) PO SCH (09:05)
[2019-04-07] MEDS: ACETAMINOPHEN 325 MG TABLET (FP) PO PRN (09:09)
[2019-04-07] MEDS: IBUPROFEN 600 MG TABLET (FP) PO PRN (09:10)
[2019-04-07] MEDS: SIMETHICONE 80 MG TAB.CHEW (FP) PO PRN (09:10)
--- NOTE | 2019-04-08 15:23 | PATH ---
Surgical Pathology Report Patient Name: FLORY HERNANDEZ Med. Rec. 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 TRIVASCULAR CORD. MEMBRANES WITH NO DIAGNOSTIC ABNORMALITIES. Electronically Signed Houston Anderson M.D. Gross Description The specimen is received fresh labeled placenta and is a 371 gram, 13.5 x 13.0 x 2.6 cm. placenta with attached membranes and umbilical cord. The attached membranes are rapp, translucent with focal opacities and insert marginally. The umbilical cord measures 20 cm. in length and averages 1.3 cm. in diameter. The cord inserts eccentrically, 4.5 cm. to the nearest margin. No true knots or strictures are identified. Cut surface of the umbilical cord reveals 3 vessels. The surface is mcmullen-blue with minimal fibrin deposition and appropriate caliber vessels. The maternal surface is red-brown with focal defects. Sectioning reveals red-brown, spongy parenchyma. No lesions are identified. Windows Consultant sections are submitted in three cassettes as follows: 1- membrane rolls and umbilical cord; 2-3- full thickness sections of placenta. /04/07/2019 saudi04/07/2019
== END 2019-04-07 13:11 | disposition home or self-care (01) | DRG 540 ==
LOC: JLDR 08:45 → J3W 14:09
PROVIDERS: ADMIT Obstetrics & Gynecology; ATTEND Obstetrics & Gynecology
PROC: 10D00Z1 Extraction of Products of Conception, Low, Open Approach (ICD-10-PCS; principal; 2019-04-04)
DX: O34.211 Maternal care for low transverse scar from previous cesarean delivery (principal); O99.213 Obesity complicating pregnancy, third trimester; E66.9 Obesity, unspecified; O99.283 Endocrine, nutritional and metabolic diseases complicating pregnancy, third trimester; E28.2 Polycystic ovarian syndrome; O99.013 Anemia complicating pregnancy, third trimester; D64.9 Anemia, unspecified; O34.29 Maternal care due to uterine scar from other previous surgery; Z90.721 Acquired absence of ovaries, unilateral; Z3A.38 38 weeks gestation of pregnancy; Z37.0 Single live birth
CPT/HCPCS: 36415; 80048; 85025; 85610; 85730; 86593; 86850; 86900; 86901; 88307-TC

== ENCOUNTER 2019-12-27 16:37 | Emergency (ER) | payer OTHER ==
[2019-12-27 16:48] VITALS: BP 140/74; PULSE 74; TEMP 98.4; BMI 42.3
--- NOTE | 2019-12-27 17:58 | PDOC ---
History of Present Illness - General Chief Complaint: Back Pain Stated Complaint: LWR BACK PAIN Time Seen by Provider: 12/27/19 16:46 History Source: Patient Exam Limitations: No Limitations - History of Present Illness Initial Comments: 12/27/19 17:53 Patient here with complaints of low back pain for a few months. Has an 8-month- old child and has to transport multiple items for care of the child. Has taken no medication for relief of pain Severity: reports: mild, moderate Pain Location: reports: back Method of Injury: Yes: unknown Modifying Factors: improves with: pain medication Associated Symptoms (Fall): denies symptoms Past History - Travel Traveled outside of the country in the last 30 days: No Close contact w/someone who was outside of country & ill: No - Past Medical History Allergies/Adverse Reactions: Allergies Allergy/AdvReac Type Severity Reaction Status Date / Time No Known Allergies Allergy Verified 12/27/19 16:48 Home Medications: Ambulatory Orders No122/Iron/Folic Acid [ Multi Tablet] 1 each PO DAILY 10/28/18 Ibuprofen 600 mg PO Q6H PRN #30 tablet 04/06/19 Oxycodone HCl/Acetaminophen [Percocet 5-325 mg Tablet -] 1 - 2 tab PO Q6H PRN # 20 tab MDD 4 04/06/19 Pnv No.95/Ferrous Fum/Folic AC [ Vitamin Tablet] 1 each PO DAILY #30 tablet 04/07/19 Cyclobenzaprine HCl 10 mg PO Q8H PRN #14 tablet 12/27/19 Naproxen [Naprosyn -] 500 mg PO BID #30 tablet 12/27/19 Asthma: No Cancer: No Cardiac Disorders: No COPD: No Diabetes: No HTN: No Seizures: No Thyroid Disease: No - Surgical History Abdominal Surgery: Yes () - Reproductive History (#): 2 Para: 1 Spontaneous : 0 - Immunization History Immunization Up to Date: Yes - Psycho Social/Smoking Cessation Hx Smoking History: Never smoked Have you smoked in the past 12 months: No Information on smoking cessation initiated: No Hx Alcohol Use: No Drug/Substance Use Hx: No Hx Substance Use Treatment: No Review of Systems - Review of Systems Able to Perform ROS?: Yes Is the patient limited Arabic proficient: Yes Constitutional: Yes: Symptoms Reported, See HPI, Malaise. No: Chills, Fever HEENTM: Yes: Symptoms Reported, See HPI Respiratory: Yes: See HPI. No: Cough Musculoskeletal: Yes: Symptoms Reported, See HPI, Back Pain, Muscle Pain Neurological: Yes: Symptoms reported, See HPI, Tremors, Weakness (To low back). No: Headache All Other Systems: Reviewed and Negative *Physical Exam - Vital Signs Last Vital Signs Temp Pulse Resp BP Pulse Ox 98.4 F 74 19 140/74 99 12/27/19 16:46 12/27/19 16:46 12/27/19 16:46 12/27/19 16:46 12/27/19 16:46 - Physical Exam General Appearance: Yes: Nourished, Appropriately Dressed, Apparent Distress, Mild Distress HEENT: positive: JOSÉ, Normal ENT Inspection, Normal Voice, TMs Normal, Pharynx Normal Neck: positive: Supple. negative: Tender Respiratory/Chest: positive: Lungs Clear, Normal Breath Sounds Musculoskeletal: positive: Normal Inspection, Muscle Spasm (Tender and tight musculature to the paravertebral muscles on the left side primarily above the issue of spine. Has no bony tenderness crepitus or step-offs. Able to flex at waist but reproduces pain to the left side. Some radiation pain. Reproduce pain with pressure at those sites. 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 NML intact, Fully Oriented, Alert, Normal Mood/ Affect, Normal Response, Motor Strength 5/5 ED Progress Note - Progress Note Progress Note: 12/27/19 18:05 Back strain, will treat with NSAIDs and cyclobenzaprine Discharge - Discharge Information Problems reviewed: Yes Clinical Impression/Diagnosis: Chronic lower back pain Qualifiers: Back pain laterality: left Sciatica presence: unspecified whether sciatica present Qualified Code(s): M54.5 - Low back pain; G89.29 - Other chronic pain Condition: Stable Disposition: HOME - Admission No - Follow up/Referral - Patient Discharge Instructions Patient Printed Discharge Instructions: DI for Low Back Pain Additional Instructions: Rest, avoid heavy lifting or strenuous activity. Make more frequent trips for all of the paraphernalia needed for care of child. Perform good body mechanics with using legs to lift and move things. Naprosyn 500 mg tablet, 1 tablet every 12 hours for the next 3 days then every 12 hours as needed for pain and swelling Cyclobenzaprine 10 mg tablet, 1 tablet every 8 hours as needed for spasm. Remember will make very dizzy and sleepy so have child cared for before taking this medication. Hot soaks to back, hot wet towels, showers. Follow-up with PMD in 1 to 2 days for reevaluation and possible further treatment - Post Discharge Activity
== END 2019-12-27 18:00 | disposition home or self-care (01) ==
LOC: JERFT 16:37
DX: S39.012A Strain of muscle, fascia and tendon of lower back, initial encounter (principal); X50.0XXA Overexertion from strenuous movement or load, initial encounter; Y93.89 Activity, other specified; Y92.89 Other specified places as the place of occurrence of the external cause; Y99.8 Other external cause status
CPT/HCPCS: 99283-25

== ENCOUNTER 2021-10-28 22:49 | Emergency (ER) | payer OTHER ==
[2021-10-28 23:42] VITALS: BMI 25.0
[2021-10-29 01:11] LABS: EPI CELLS 6 /uL (0-25.1); HYALINE CASTS 1 /uL (0-3.1); PH,URINE 6.5 (5.0-8.0); URINE APPEARANCE CLEAR; URINE BACTERIA >9,000 /uL (0-1359); URINE BILIRUBIN NEGATIVE (NEGATIVE); URINE COLOR YELLOW; URINE GLUCOSE (UA) NEGATIVE (NEGATIVE); URINE KETONE TRACE (NEGATIVE); URINE LEUK ESTERASE NEGATIVE (NEGATIVE); URINE NITRITE POSITIVE (NEGATIVE); URINE PROTEIN NEGATIVE (NEGATIVE); URINE RBC 7 /uL (0-23.9); URINE WBC 6 /uL (0-25.8)
[2021-10-29 01:15] LABS: BASO % 0.5 % (0-2.0); EOS % 3.1 % (0-4.5); HEMATOCRIT 33.6 % (32.4-45.2); LYMPH % 40.6 % (8-40); MCH 24.6 pg (25.7-33.7); MCHC 32.8 g/dl (32.0-36.0); MEAN PLT VOLUME 9.3 fl (7.5-11.1); NEUT % 47.8 % (42.8-82.8); PLATELET COUNT 276 10^3/uL (134-434); RBC 4.47 M/mm3 (3.60-5.2); RDW 16.2 % (11.6-15.6); WHITE BLOOD COUNT 7.2 K/mm3 (4.0-10.0)
[2021-10-29 01:25] LABS: ALBUMIN 3.8 g/dl (3.4-5.0); BLOOD UREA NITROGEN 19.4 mg/dL (7-18)
[2021-10-29 01:28] LABS: CREATININE 0.5 mg/dL (0.55-1.3)
[2021-10-29 01:30] LABS: BILIRUBIN,TOTAL 0.3 mg/dL (0.2-1); TOT PROT 7.4 g/dl (6.4-8.2)
[2021-10-29] MEDS ORDERED: CEPHALEXIN MONOHYDRATE 500 MG CAPSULE (UD) PO ONE (03:51)
[2021-10-29] MEDS ORDERED: CEPHALEXIN MONOHYDRATE 500 MG CAPSULE (UD) ONE (03:59)
[2021-10-29 04:08] VITALS: BP 115/69; PULSE 76; TEMP 97.2
== END 2021-10-29 04:24 | disposition home or self-care (01) ==
LOC: JER 22:49
DX: O20.0 Threatened abortion (principal); N39.0 Urinary tract infection, site not specified
CPT/HCPCS: 36415; 76817-TC; 80053; 81003; 84702; 84703; 85025; 86850; 86900; 86901; 87086; 87186; 99284-25

== ENCOUNTER 2024-08-02 18:45 | Emergency (ER) | payer OTHER ==
[2024-08-02 18:54] VITALS: BP 118/68; PULSE 87; RESP 20; TEMP 98.9; BMI 30.4
[2024-08-02] MEDS ORDERED: METHOCARBAMOL 500 MG TABLET ONE (20:08)
[2024-08-02] MEDS ORDERED: LIDOCAINE 4% PATCH TP ONE (20:08)
[2024-08-02] MEDS ORDERED: IBUPROFEN 400 MG TABLET (FP) PO ONE (20:08)
[2024-08-02] MEDS ORDERED: ACETAMINOPHEN 500 MG TABLET (FP) ONE (20:09)
[2024-08-02] MEDS: IBUPROFEN 400 MG TABLET (FP) PO ONE (20:13)
[2024-08-02] MEDS: LIDOCAINE 4% PATCH TP ONE (20:13)
[2024-08-02] MEDS: ACETAMINOPHEN 500 MG TABLET (FP) PO ONE (20:14)
[2024-08-02] MEDS: METHOCARBAMOL 500 MG TABLET PO ONE (20:14)
== END 2024-08-02 20:43 | disposition home or self-care (01) ==
LOC: JER 18:45 → JERFT 18:45
DX: M25.512 Pain in left shoulder (principal); V49.40XA Driver injured in collision with unspecified motor vehicles in traffic accident, initial encounter
CPT/HCPCS: 71046-TC-FY; 99283-25